=== PATIENT | male | born 1975 | race Caucasian/White ===

== ENCOUNTER 2018-03-20 17:34 | Emergency (ER) | payer OTHER ==
[~2018-03-20] VITALS: Ht 180.3 cm; Wt 65.0 kg
[2018-03-20] MEDS ORDERED: AMOXICILLIN 50500 MG PO (18:37)
[2018-03-20 18:48] VITALS: BP 126/75
== END 2018-03-20 18:49 | disposition home or self-care (01) ==
LOC: M.ERS 17:34
DX: J01.90 Acute sinusitis, unspecified (principal)